=== PATIENT | female | born 1950 | race Caucasian/White ===

== ENCOUNTER 2019-11-01 06:00 | Outpatient (RCR) | payer OTHER, SELFPAY | END 2019-12-01 23:59 | disposition home or self-care (01) | LOC: MPT 06:00 | PROVIDERS: Family Provider Family Medicine; PCP Family Medicine; Referring Provider Family Medicine; Visit Provider Family Medicine | DX: S76.211D Strain of adductor muscle, fascia and tendon of right thigh, subsequent encounter (principal); X58.XXXD Exposure to other specified factors, subsequent encounter | CPT/HCPCS: 97110; 97116; 97161 ==

== ENCOUNTER 2019-12-02 06:00 | Outpatient (RCR) | payer OTHER, SELFPAY | END 2019-12-31 23:59 | disposition home or self-care (01) | LOC: MPT 06:00 | PROVIDERS: PCP Family Medicine; Referring Provider Family Medicine; Visit Provider Family Medicine | DX: S76.211D Strain of adductor muscle, fascia and tendon of right thigh, subsequent encounter (principal); X58.XXXD Exposure to other specified factors, subsequent encounter | CPT/HCPCS: 97110; 97116 ==

== ENCOUNTER 2020-01-01 06:00 | Outpatient (RCR) | payer OTHER, SELFPAY | END 2020-01-31 23:59 | disposition home or self-care (01) | LOC: MPT 06:00 | PROVIDERS: PCP Family Medicine; Referring Provider Family Medicine; Visit Provider Family Medicine | DX: S76.211D Strain of adductor muscle, fascia and tendon of right thigh, subsequent encounter (principal); X58.XXXD Exposure to other specified factors, subsequent encounter | CPT/HCPCS: 97110; 97116 ==

== ENCOUNTER → 2020-03-11 10:30 | Outpatient (BNVA) | payer OTHER, SELFPAY | PROVIDERS: PCP Family Medicine; Visit Provider Family Medicine | DX: R73.03 Prediabetes (principal); Z13.220 Encounter for screening for lipoid disorders; Z13.6 Encounter for screening for cardiovascular disorders | CPT/HCPCS: 80048; 80061; 83036 ==

== ENCOUNTER → 2020-06-17 10:33 | Outpatient (BNVA) | payer OTHER, SELFPAY | PROVIDERS: PCP Family Medicine; Visit Provider Family Medicine | DX: A05.9 Bacterial foodborne intoxication, unspecified (principal); K82.9 Disease of gallbladder, unspecified | CPT/HCPCS: 80053; 83690; 85025 ==

== ENCOUNTER → 2020-10-22 15:02 | Outpatient (BNVA) | payer OTHER, SELFPAY | PROVIDERS: PCP Family Medicine; Visit Provider Emergency Medicine | DX: J02.9 Acute pharyngitis, unspecified (principal) | CPT/HCPCS: 87070; 87880 ==

== ENCOUNTER → 2021-04-22 09:33 | Outpatient (BNVA) | payer OTHER, SELFPAY | PROVIDERS: PCP Family Medicine; Visit Provider Family Medicine | DX: E55.9 Vitamin D deficiency, unspecified (principal); Z13.6 Encounter for screening for cardiovascular disorders; R73.03 Prediabetes | CPT/HCPCS: 80053; 80061; 82652; 83036 ==

== ENCOUNTER → 2022-04-18 09:55 | Outpatient (BNVA) | payer OTHER, SELFPAY | PROVIDERS: PCP Family Medicine; Visit Provider Family Medicine | DX: E11.9 Type 2 diabetes mellitus without complications (principal); M70.61 Trochanteric bursitis, right hip; Z13.6 Encounter for screening for cardiovascular disorders | CPT/HCPCS: 73502; 80053; 80061; 83036 ==

== ENCOUNTER → 2022-10-17 10:27 | Outpatient (BNVA) | payer OTHER, SELFPAY | PROVIDERS: PCP Family Medicine; Visit Provider Family Medicine | DX: M53.3 Sacrococcygeal disorders, not elsewhere classified (principal) | CPT/HCPCS: 72100 ==

== ENCOUNTER → 2023-01-30 14:47 | Outpatient (BNVA) | payer OTHER, SELFPAY | PROVIDERS: PCP Family Medicine; Visit Provider Family Medicine | DX: M70.61 Trochanteric bursitis, right hip (principal); M17.11 Unilateral primary osteoarthritis, right knee | CPT/HCPCS: 73562 ==

== ENCOUNTER → 2023-04-06 10:13 | Outpatient (BNVA) | payer OTHER, SELFPAY | PROVIDERS: PCP Family Medicine; Visit Provider Family Medicine | DX: M17.11 Unilateral primary osteoarthritis, right knee (principal); R06.02 Shortness of breath; R73.03 Prediabetes; Z13.220 Encounter for screening for lipoid disorders; Z13.6 Encounter for screening for cardiovascular disorders | CPT/HCPCS: 71046; 80053; 80061; 83036; 85025 ==

== ENCOUNTER 2023-04-14 11:25 | Outpatient (CLI) | payer OTHER, SELFPAY ==
--- NOTE | 2023-04-14 11:45 | USCV_ITS ---
Jennifer Dupree Age: 72 Gender: F : 1950 Exam Date: 04/14/2023 11:40 Ordering Phys: Caron Farr MD Technologist: YOLANDA Exam Location: [facility] Indication: SHORTNESS OF BREATH BP: 142 / 64 HR: 41 Rhythm: Sinus Technical Quality: Suboptimal MEASUREMENTS (Male / Female) Normal Values 2D ECHO LVOT Diameter 2.0 cm LV Ejection Fraction MOD 2C 64.0 % LV Ejection Fraction 2C AL 63.3 % LA Diameter 2.9 cm LA Width 3.1 cm LA Height 5.0 cm RA Width 3.3 cm RA Height 4.7 cm Aorta at Sinotubular Diameter 2.0 cm IVC Diameter 1.6 cm M-MODE Aortic Annulus Diameter 2.7 cm LA Ao Ratio MM 0.9 MV E Point Septal Separation 0.6 cm DOPPLER AV Peak Velocity 162.0 cm/s LVOT Peak Velocity 137.0 cm/s AV Area Cont Eq vti 2.8 cm squared AV Area Cont Eq pk 2.7 cm squared MV Peak Velocity 123.0 cm/s MV Area PHT 3.0 cm squared Mitral E to A Ratio 0.8 MV E' Velocity 52.0 cm/s Mitral E to MV E' Ratio 7.0 Mitral E to LV E' Lateral Ratio 5.8 Mitral E to LV E' Septal Ratio 8.7 TR Peak Velocity 251.3 cm/s TR Peak Gradient 25.3 mmHg TR Mean Velocity 208.1 cm/s TR Mean Gradient 18.1 mmHg TR Velocity Time Integral 90.2 cm TV Peak E Velocity 68.0 cm/s Right Atrial Pressure 3.0 mmHg Pulmonary Artery Systolic Pressu 28.3 mmHg FINDINGS Left Ventricle Normal left ventricular size and systolic function, EF 69 %. No regional wall motion abnormalities. Grade I/IV diastolic dysfunction (abnormal relaxation filling pattern), normal to mildly elevated filling pressures. Right Ventricle The right ventricle is normal in size and function. Right Atrium The right atrium is normal in size. Left Atrium The left atrium is normal in size. Mitral Valve No gross abnormalities noted Aortic Valve Thickened aortic valve. Tricuspid Valve Trace tricuspid valve regurgitation. Estimated pulmonary artery peak systolic pressure 28 mmHg Pulmonic Valve No gross abnormalities noted Pericardium Normal pericardium without effusion. Aorta Normal ascending aorta dimension. IVC Normal inferior vena cava. CONCLUSIONS Normal left ventricular size and systolic function, EF 69 %. No regional wall motion abnormalities. Grade I/IV diastolic dysfunction (abnormal relaxation filling pattern), normal to mildly elevated filling pressures. Thickened aortic valve. Trace tricuspid valve regurgitation. Estimated pulmonary artery peak systolic pressure 28 mmHg. There is no pericardial effusion. There are no intracardiac masses. No similar previous studies are available for comparison Dr Viet Dias MD FAC (Electronically Signed) Final Date: 14 April 2023 20:35 S
== END 2023-04-14 11:26 | disposition home or self-care (01) ==
PROVIDERS: PCP Family Medicine; Visit Provider Family Medicine
DX: R06.02 Shortness of breath (principal); I51.89 Other ill-defined heart diseases; I35.8 Other nonrheumatic aortic valve disorders
CPT/HCPCS: 93306

== ENCOUNTER → 2023-06-21 11:35 | Outpatient (BNVA) | payer OTHER, SELFPAY | PROVIDERS: PCP Family Medicine; Referring Provider Nurse Practitioner Family; Visit Provider Internal Medicine Cardiovascular Disease | DX: R06.02 Shortness of breath (principal); Z98.61 Coronary angioplasty status; M25.561 Pain in right knee; M17.11 Unilateral primary osteoarthritis, right knee; Z96.652 Presence of left artificial knee joint; R06.09 Other forms of dyspnea; I51.89 Other ill-defined heart diseases; R00.1 Bradycardia, unspecified | CPT/HCPCS: 20610; 36415; 73560; 73565; 80048; 83880; 93005; 99204 ==

== ENCOUNTER 2023-07-05 09:05 | Outpatient (CLI) | payer OTHER, SELFPAY ==
--- NOTE | 2023-07-05 | ECG_ITS ---
[facility] Test Date: 2023-07-05 Pat Name: Jennifer Dupree Department: Room: Gender: Female Business Development Engineer: : 1950 Requested By: Viet Dias Order Number: [id number] Michael MD: Viet Dias M.D. Interpretive Statements NAME OF STUDY: EXERCISE SESTAMIBI STRESS TEST INDICATION: Shortness of Breath PROCEDURE: The baseline electrocardiogram showed sinus bradycardia with a poor R wave progression.. At the baseline, the patient's blood pressure was 150/85 mm Hg with a heart rate of 54. The patient exercised for 5 minutes and 36 seconds on a standard Addy protocol. Patient attained a maximum heart rate of 130 beats per minute(87% of the maximum predicted heart rate) with a blood pressure at the peak exercise of 197/89 mm Hg. The EKG at the peak exercise revealed no significant changes. Occasional supraventricular ectopics were noted. Patient did not have any chest pain or any significant arrhythmis with the exercise Sestamibi was injected 1 minute prior to the peak exercise During the recovery phase, there were no new changes. Blood pressure at the end of the recovery phase was 195/76 mm Hg with a heart rate of 65 per minute. CONCLUSION: 1. No significant EKG changes with the treadmill exercise 2. No exercise-induced chest pain or cardiac arrhythmia 3. Slightly impaired impaired exercise tolerance, attained a maximum of 7.0 METs 4. Sestamibi/Sestamibi perfusion results pending; see separate report. Electronically Signed On 07-14-2023 16:08:16 PRODUCT DEVELOPMENT by Viet Dias M.D. [email or web address]
[2023-07-05 09:13] VITALS: BMI 31.2
--- NOTE | 2023-07-05 09:14 | NMCV_ITS ---
NM toni perf SPECT r/s* [id number] Jennifer Dupree Age: 72 Gender: F : 1950 Exam Date: 07/05/2023 09:14 Ordering Phys: Viet Dias MD ([email or web address]) Technologist: YOUSUF Miller Exam Location: [facility] Indications: CORONARY ANGIOPLASTY STATUS STRESS TEST Please see separate stress test report in [facility] for full findings IMAGE PROTOCOL Rest/Stress 1 Exercise Day Radiopharmaceutical Dose (mCi) Administration Site Administered by Rest: Tc-99m 10.6 IV YOUSUF Miller Sestamibi Stress:Tc-99m 32.7 IV YOUSUF Dee Sestamibi Rest: 05-Jul-2023 60 Discovery 630 Stress: 05-Jul-2023 15 Discovery 630 Radiopharmaceutical was injected at 85 % maximum heart rate. Images obtained in supine and prone position. SPECT RESULTS Technical Quality: Excellent Raw Data Analysis: Normal Image Corrections: No attenuation or motion correction applied Summed Stress Score: 0 Summed Rest Score: 3 Summed Difference Score: 0 PERFUSION FINDINGS Areas of slightly decreased tracer uptake were noted in the apical region. No significant reversibility was noted FUNCTIONAL RESULTS (calculated via Gated SPECT) Stress Image LV EF (%): 77 Stress EDV (mL):65 TID: 0.85 Stress ESV (mL):15 FUNCTIONAL FINDINGS: Segmental wall might have's revealed mild hypokinesia of the LV apex. The transient ischemic dilatation ratio was 0.85. IMPRESSIONS 1. Myocardial perfusion imaging revealing small area of slightly decreased persistent tracer uptake in the apical region, suggestive of myocardial scarring versus attrition artifact. 2. Normal LV ejection fraction of 77%. 3. LV wall motion analysis revealed mild hypokinesia of the LV apex. 4. Normal LV volume No significant coronary ischemia, based on the above findings Dr Viet Dias MD [facility] (Electronically Signed) Final Date: 05 July 2023 16:28 S
[2023-07-05 11:52] VITALS: BP 195/89; PULSE 65
== END 2023-07-05 09:06 | disposition home or self-care (01) ==
LOC: CDL 09:08
PROVIDERS: PCP Family Medicine; Visit Provider Internal Medicine Cardiovascular Disease
DX: R06.02 Shortness of breath (principal); Z98.61 Coronary angioplasty status; R93.1 Abnormal findings on diagnostic imaging of heart and coronary circulation
CPT/HCPCS: 36415; 78452; 93017; A9500

== ENCOUNTER → 2023-07-19 13:36 | Outpatient (BNVA) | payer OTHER, SELFPAY | PROVIDERS: PCP Family Medicine; Visit Provider Family Medicine | DX: M25.551 Pain in right hip (principal); M17.11 Unilateral primary osteoarthritis, right knee; M23.41 Loose body in knee, right knee; M22.41 Chondromalacia patellae, right knee | CPT/HCPCS: 72100; 73502 ==

== ENCOUNTER 2023-07-20 15:35 | Outpatient (CLI) | payer OTHER, SELFPAY ==
--- NOTE | 2023-07-20 16:00 | MR_ITS ---
WS: [id number] MRI RIGHT KNEE NONCONTRAST TECHNIQUE: Axial PD, coronal PD fat sat, coronal PD, sagittal PD, and sagittal PD fat-sat images obta ined. CLINICAL INFORMATION: right knee pain, further evaluate loose body COMPARISON: None. FINDINGS: Distal quadriceps and patella tendons are intact. Hypertrophic patella. Advanced tricompartment arthr itis. Hypertrophic changes along the joint line. Tiny suprapatellar effusion. Lobulated popliteal cys t measuring 4.3 x 2.1 cm. Calcified loose body in the superior aspect of the popliteal cyst measuring 17 x 8 mm. Additional calcified loose body along the posterior lateral tibia measuring 16 x 12 mm adjacent to th e fibular head. Normal ACL and PCL. Advanced joint space narrowing medial joint compartment grade IV chondromalacia and subchondral edema. Hypertrophic change along the joint line. Chronic thinning of t he medial and lateral meniscus. Peripheral extrusion of the medial meniscus. Advanced chondromalacia patella with subchondral edema. This is worse involving the medial patellar facet. Normal medial and lateral patellar retinaculum. Normal medial and lateral collateral ligaments. IMPRESSION: 1. ACL and PCL are intact. 2. Advanced tricompartmental arthritis with grade IV chondromalacia. Subchondral edema in the medial joint compartment. 3. Chronic thinning of the medial and lateral meniscus with [id number] articulation in the medial joint compartment. 4. Calcified loose bodies in the superior aspect of the popliteal cyst and also adjacent to the post erolateral tibia and fibula head 5. Lobulated popliteal cyst measures 2.1 x 4.3 cm. 6. Grade IV chondromalacia patella with subchondral edema worse involving the lateral patellar facet . 7. Small suprapatellar effusion. Outbridge grading: grade IV: full-thickness cartilage loss with underlying bone reactive changes
== END 2023-07-20 15:36 | disposition home or self-care (01) ==
LOC: RAD 15:36
PROVIDERS: PCP Family Medicine; Visit Provider Specialist
DX: M17.11 Unilateral primary osteoarthritis, right knee (principal); M22.41 Chondromalacia patellae, right knee; M23.41 Loose body in knee, right knee; M71.21 Synovial cyst of popliteal space [Baker], right knee; M23.331 Other meniscus derangements, other medial meniscus, right knee; M23.361 Other meniscus derangements, other lateral meniscus, right knee
CPT/HCPCS: 73721

== ENCOUNTER → 2023-08-02 14:19 | Outpatient (BNVA) | payer OTHER, SELFPAY | PROVIDERS: PCP Family Medicine; Visit Provider Nurse Practitioner | DX: M17.11 Unilateral primary osteoarthritis, right knee (principal); M25.561 Pain in right knee; G89.29 Other chronic pain | CPT/HCPCS: 99214 ==

== ENCOUNTER → 2023-08-22 14:40 | Outpatient (BNVA) | payer OTHER, SELFPAY | PROVIDERS: PCP Family Medicine; Visit Provider Internal Medicine Cardiovascular Disease | DX: I51.89 Other ill-defined heart diseases (principal); R06.09 Other forms of dyspnea; R00.1 Bradycardia, unspecified | CPT/HCPCS: 99214 ==

== ENCOUNTER → 2023-09-04 10:15 | Outpatient (BNVA) | payer OTHER, SELFPAY | PROVIDERS: PCP Family Medicine; Visit Provider Nurse Practitioner | DX: M17.11 Unilateral primary osteoarthritis, right knee (principal); Z01.818 Encounter for other preprocedural examination; G89.29 Other chronic pain; M25.561 Pain in right knee | CPT/HCPCS: 36415; 73560; 73565; 80053; 81001; 85025; 99214 ==

== ENCOUNTER 2023-09-27 13:03 | Outpatient (CLI) | payer OTHER, SELFPAY ==
--- NOTE | 2023-09-27 13:30 | CT_ITS ---
WS: [id number] CT RIGHT KNEE, NONCONTRAST FAVIOLA TECHNIQUE: Noncontrast CT of the RIGHT knee to include the RIGHT hip and ankle. CLINICAL INFORMATION: Pre-operative CT COMPARISON: None. DLP: 841.[address] scans at [facility] use at least one of these dose optimization techniques: automated e xposure control; mA and/or kV adjustment per patient size (includes targeted exams where dose is matc hed to clinical indication); or iterative reconstruction. FINDINGS: Advanced tricompartment arthritis RIGHT knee worse in the medial joint compartment. Hypertrophic yeboah ges along the joint line. Hypertrophic patella. Moderate arthritis sacroiliac joints. Moderate degenerative narrowing bilateral hips. Osteopenia. Sig moid diverticulosis. Tiny suprapatellar effusion. Small lobulated popliteal cyst with calcification. Dystrophic soft tissue calcification in the popliteal fossa. Postoperative changes LEFT TKA. IMPRESSION: Images obtained for preoperative purposes.
== END 2023-09-27 13:04 | disposition home or self-care (01) ==
LOC: RAD 13:04
PROVIDERS: PCP Family Medicine; Visit Provider Nurse Practitioner
DX: M17.11 Unilateral primary osteoarthritis, right knee (principal); M16.0 Bilateral primary osteoarthritis of hip; M47.818 Spondylosis without myelopathy or radiculopathy, sacral and sacrococcygeal region
CPT/HCPCS: 73700

== ENCOUNTER → 2023-10-04 10:18 | Outpatient (BNVA) | payer SELFPAY | PROVIDERS: PCP Family Medicine; Visit Provider Family Medicine | DX: Z01.818 Encounter for other preprocedural examination (principal) | CPT/HCPCS: 80048; 81003; 85025 ==

== ENCOUNTER 2023-10-10 11:28 | Observation (INO) | payer OTHER, MEDICARE, SELFPAY ==
[2023-10-10] VITALS (15 sets, daily range): BP systolic 112–181; BP diastolic 56–89; PULSE 41–59; RESP 15–18; TEMP 36.1–37; O2SAT 92–98; BMI 31.4
[2023-10-10] MEDS: sodium chloride 0.9% 1,000 ML 30 ML IV (06:51)
[2023-10-10] MEDS: acetaminophen 1,000 MG/100 ML PIGGYBACK 400 MG IV ×3 (06:51→22:22)
--- NOTE | 2023-10-10 06:55 | P.HPUD_ITS ---
Surgery/Procedure H&P Update DATE OF PROCEDURE: October 10, 2023 DATE H&P PERFORMED: 10/04/23 H&P UPDATE INFORMATION: I have reviewed H&P completed within last 30 days, I have examined patient prior to procedure, No changes to prior documentation and H&P is in [facility] E[facility] on date indicated PLANNED PROCEDURE: Operation Date: 10/10/23 07:55 Proposed Procedures p Moreno Robot Total Knee Arthroplasty(Right) - Bushra Ellison MD Related Problem List Diagnoses (1) Primary osteoarthritis of right knee:
[2023-10-10] MEDS: ceFAZolin 2,000 MG in sodium chloride 0.9% (plus) 50 ML 100 MG IV ×3 (08:11→23:08)
--- NOTE | 2023-10-10 09:01 | ANES.PROC ---
Anesthesia Procedures Procedure/Date: 10/10/23 Nerve Block ^: Nerve Block 1: Main Anesthesia: spinal anesthesia block Time Out Performed: Yes Consent: requested by attending/covering physician, from patient and risks and benefits reviewed Nerve block location: adductor canal (right) Anesthesia monitors applied: pulse oximetry, EKG, BP cuff and oxygen Nerve block position: supine Anesthetic Used: ropivicaine 0.5% Amount of anesthesia used (mL): 20 Ultrasound used to: recognize landmarks Nerve Stimulator Used?: No Interscalene/Femoral BLK: 4 stimuplex 21 g needle used for position and inplane approach Injection: neg aspiration of heme Patient Tolerated Procedure: well Complications: none
[2023-10-10] MEDS: tranexamic acid 1,000 mg/10mL SDV 1000 MG IV (09:04)
[2023-10-10] MEDS: vancomycin 1,000 MG SDV 1000 MG XX (09:51)
[2023-10-10] MEDS: BUPivacaine 0.5% INJ 30 mL 20 ML INJECTION (10:06)
[2023-10-10] MEDS: BUPivacaine liposome 13.3 mg/mL SDV 10 mL 266 MG INFILTRATI (10:06)
[2023-10-10] MEDS: ceFAZolin 1,000 mg SDV 2000 MG IRRIGATION (10:07)
--- NOTE | 2023-10-10 11:31 | ANES.PREANE2 ---
Pre-Anesthetic Assessment Height/Weight: Height 1.63 m Weight 83.007 kg Temp Pulse Resp BP Pulse Ox O2 Del Method 97 F L 43 L 18 131/60 97 Room Air 10/10/23 11:25 10/10/23 11:25 10/10/23 11:25 10/10/23 11:25 10/10/23 11:25 10/10/23 11:25 Operation Date: 10/10/23 07:55 Proposed Procedures p Moreno Robot Total Knee Arthroplasty(Right) - Bushra Ellison MD Familial anesthetic complications: none Was Beta Bruno taken within 24 hours: Yes Was Clonidine taken within 24 hours: N/A Last intake: Intake Last Liquid Date 10/09/23 Last Liquid Time 23:00 Last Solid Date 10/09/23 Last Solid Time 19:00 Social No alcohol and No tobacco Exam alert, oriented x 3, clear to auscultation bilaterally and regular rate & rhythm Airway Submandibular: within normal limits Cervical ROM: within normal limits Mallampati: Class II Dentition: full Musc/skel Osteoarthritis/DJD Anesthetic Plan ASA status: 2 Anesthesia: Regional (specify below) (SAB with adductor blk) Medications/Allergies Home Medications Medication Instructions Recorded Confirmed Last Taken Type latanoprost (PF) 0.005 % eye drops 1 drop ophthalmic (eye) DAILY 03/11/20 10/09/23 10/09/23 History timolol 0.5 % eye drops 1 drop ophthalmic (eye) DAILY 03/11/20 10/10/23 10/10/23 History cyclosporine 0.05 % eye drops in a 1 drp ophthalmic (eye) Q12H 04/18/22 10/10/23 10/10/23 History dropperette (Restasis) Allergies Allergy/AdvReac Type Severity Reaction Status Date / Time metoclopramide [From Reglan] Allergy Mild ADR-Shakine Verified 10/09/23 11:21 ss Current Medications Generic Name Dose Route Start Last Admin Trade Name Freq PRN Reason Stop Dose Admin Sodium Chloride 1,000 mls @ 30 mls/hr 10/10/23 06:30 10/10/23 06:51 Sodium Chloride 0.9% IV 10/11/23 06:29 30 mls/hr .Q24H CHENG Administration PFSH Anesthesia Surgical History History of total left knee replacement History of knee replacement left H/O wrist surgery left side Family History Father CAD (coronary artery disease) Denies family history of Diabetes Chronic kidney disease (CKD) Anesthesia complication Cancer Hypertension Stroke Social History Second hand smoke exposure: No Alcohol intake: never Substance/Drug Use: never Female Reproductive History Spontaneous abortions: No Data Anesthesia Cardiac Studies: Echocardiogram 04/14/23 Sestamibi Stress Test (Cardiology) 07/05/23
--- NOTE | 2023-10-10 11:31 | PM.OP ---
Operative Report Date of procedure: October 10, 2023 Pre-op diagnosis: Primary osteoarthritis right knee with varus deformity and slight flexion contracture Post-op diagnosis: Primary osteoarthritis right knee with varus deformity and slight flexion contracture Post-op findings: Large osteophytes and varus deformity. Procedure done: Right total knee arthroplasty with Moreno guidance Implants: The [place] total knee system with a size 3 triathlon beaded cruciate retaining femur left, a triathlon titanium tibial component size 3 beaded, a triathlon X3 tibial bearing CS insert size 3 X 10 mm and a beaded triathlon titanium asymmetric patella size 32 x 10 mm Specimens removed/disposition: Bone, disposed of Pathology: None Surgeon: Bushra Ellison MD Outside Solar Sales Consultant: [facility] operating room technicians Anesthesia: Spinal (With MAC, ASA 2) Estimated blood loss (mL): 50 Tourniquet time (min): 0 (Not utilized) IV fluids (mL): 1,000 Urine output (mL): 250 Complications: None Findings: Severe degenerative osteoarthritis with large osteophytes and varus deformity. Complete denudement of bone from medial femoral condyle and patella Condition: stable Disposition: PACU (Then transfer to floor for postoperative rehabilitation and pain management) Brief History: This 72-year-old woman presented to the office for evaluation secondary to severe degenerative osteoarthritis of the right knee and severe pain secondary to this. She had the pain for greater than 2 years. She had findings on x-ray consistent with severe degenerative osteoarthritis. She also had conservative measures which were not successful including injection therapy of viscosupplementation as well as corticosteroids, bracing, physical therapy, activity modification, and oral anti-inflammatories. The patient had difficulties with activities of daily living and wished to proceed with operative intervention in the form of right total knee arthroplasty. Risks and complications were discussed with her in the office, and consents were signed. Procedure: The patient was brought to the operating theater, and after undergoing spinal anesthetic, with MAC and with supplemental adductor canal block, ASA 2, the right lower extremity was prepped with Dura-Prep and draped in usual fashion following placement of a tourniquet high on the leg. The leg was then draped free.? Tourniquet was not elevated during the case.? A surgical pause was performed, and at the time of the surgical pause, we confirmed the site and side of surgery. Additionally, we confirmed the appropriate and timely administration of preoperative antibiotics, Ancef 2 g.? The availability of equipment was confirmed, and the patient's identity was verbalized as well. Following the surgical pause, an incision was made centering over the patella continuing proximally and distally as necessary to allow access to the knee joint. Dissection continued through skin and soft tissues using a scalpel. Hemostasis was obtained using electrocautery. The skin incision was followed by a median parapatellar arthrotomy. The leg was extended and the patella was able to be displaced laterally.? Appropriate arrays and markers were placed in appropriate position for use of the Moreno.? Preoperative planning had been accomplished and was discussed in detail with the [facility] contracts representative.? Intraoperative mapping of the femur and tibia was accomplished after the arrays were placed.? Internal markers were also placed.? Once we had accomplished the Moreno mapping, we began the appropriate resections for placement of the prosthesis.? The plan was for a cruciate retaining right total knee arthroplasty. Once appropriate mapping had been accomplished retraction was established using manual retraction by surgical technicians and also the Moreno leg positioner and retractors.? The knee was evaluated.? There was significant osteoarthritic change as well as very minimal flexion contracture as well as varus deformity.? Appropriate bone resection was accomplished using the Moreno.? The femur was sized to a size 3.? Following femoral cuts, attention was directed to the tibia.? Osteophytes were removed prior to this portion of the procedure.? We had performed a minimal medial release at the beginning of the procedure to allow for placement of the array.? Proximal tibia was evaluated, and it was felt that appropriate size for the tibia was a size 3.? Tray was noted to fit nicely with good coverage.? Rim fit was accomplished with the size 3. A trial reduction was accomplished after osteophytes have been removed as well as the medial and lateral menisci.? We had removed the anterior cruciate ligament at the beginning of the case and preserved the posterior cruciate ligament.? Trial reduction was accomplished with a size 3 femoral cruciate retaining component, a size 3 tibial tray and a size 3 CS tibial bearing insert which was 9 mm initially which was increased to 10 mm.? Secondary to the balancing of the knee, we elected to place a 10 mm insert for the actual component. Alignment was felt to be appropriate as well.? Trial components were removed after the femur had been drilled.? Prior to removal of the tibial tray which had been pinned in position with appropriate rotation as determined by the Moreno plan, we broached the tibia.? Subsequently, the 4 drill holes were made for the prosthetic component.? All trial components were removed, and the wound was irrigated.? Plans were made for insertion of the prosthetic components.? Prior to this, the patella was manually prepared.? After resection of the articular surface with the jogging system, it was measured and measured a 32 mm patella.? We resected approximately 6 mm of patella.? Patellar height was restored with the patellar component. Once again, the wound was irrigated.? The Tritanium tibia was impacted into position.? The beaded femur was then impacted into position in a cementless fashion. The CS tibial insert was placed prior to placement of the femoral component. The patella was pressed into position with a patellar clamp.? Exparel was injected about the components deep and superficially.? The knee was then copiously irrigated with betadine and saline and suctioned dry. Attention was then directed to closure. Closure was accomplished with 0 Vicryl in the fascial tissues.? The suture line of 0 Vicryl was supplemented with strata fix, #1, with a running stitch from proximal to distal and a second running stitch from distal to proximal.? This was followed by Surgiflo and vancomycin powder.? Following this, a 2-0 Monocryl was used in the subcutaneous tissues, and the skin was closed with 3-0 Strata fix.? Care was taken to assure an excellent subcutaneous as well as skin closure.? A sterile dressing was then placed consisting of Dermabond Prineo, OpSite, ABD, sterile soft roll, and an Devin wrap including over the foot. The patient was returned the Recovery Room in a satisfactory condition. X-rays were obtained and reviewed there.? The patient will be discharged to the floor for postoperative rehabilitation and pain management. Related Problem List Diagnoses (1) Primary osteoarthritis of right knee: (2) Varus deformity, not elsewhere classified, right knee:
--- NOTE | 2023-10-10 11:35 | XRR_ITS ---
PROCEDURE INFORMATION: Exam: XR Right Knee Exam date and time: 10/10/2023 10:38 AM Age: 72 years old Clinical indication: Device placement; Joint replacement hardware; Prior surgery; Surgery date: Post-operative (0-2 days); Surgery type: RT knee; Additional info: Post op TECHNIQUE: Imaging protocol: Radiologic exam of the right knee. Views: 1 or 2 views. COMPARISON: CT knee RT [facility] [id number] 09/27/2023 1:30 PM FINDINGS: Bones/joints: Right total knee arthroplasty. No acute fracture or dislocation. Soft tissues: Soft tissue air of the right knee. XR/XR knee RT 1-2V [id number] IMPRESSION: Right total knee arthroplasty.
[2023-10-10] MEDS: chlorhexidine gluconate 0.12% Btl 473 mL 30 ML MUCOUS MEM ×3 (12:46→20:06)
[2023-10-10] MEDS: oxyCODONE 5 mg IR Tab/Cap PO ×3 (12:46→21:16)
[2023-10-10] MEDS: sennosides-docusate Tablet 2 TAB PO (17:19)
[2023-10-10] MEDS: mupirocin oint 22 gm 1 APPLIC NASAL (17:23)
[2023-10-10] MEDS: iron polysaccharide complex 150 mg Capsule PO (17:23)
[2023-10-10] MEDS: calcium carbonate 500 mg Chew Tablet 1000 MG PO (17:23)
[2023-10-10] MEDS: CELEcoxib 200 mg Capsule PO (20:06)
[2023-10-11] VITALS (8 sets, daily range): BP systolic 151–158; BP diastolic 73–76; PULSE 51–57; RESP 16–18; TEMP 36.6–36.9; O2SAT 93–94
[2023-10-11] MEDS: oxyCODONE 5 mg IR Tab/Cap PO ×3 (04:10→12:03)
[2023-10-11 05:11] LABS: Basophils # 0.1 10^3/uL (0.0-0.1); Basophils % 0.6 %; Eosinophils % 0.4 %; Hematocrit 36.4 % (36-47); Lymphocytes # 2.2 10^3/uL (0.8-4.8); Lymphocytes % 20.3 %; Mean Corpuscular HGB Conc 32.4 g/dL (30-55); Mean Corpuscular Hemoglobin 28.5 pg (27-33); Mean Corpuscular Volume 87.9 fl (85-98); Mean Platelet Volume 9.8 fL (7.4-10.4); Monocytes # 0.9 10^3/uL (0.2-0.9); Monocytes % 7.7 %; Neutrophils # 7.77 10^3/uL (1.8-7.7); Neutrophils % 70.7 %; Nucleated Red Blood Cells % 0 %; Platelet Count 305 10^3/cmm (157-399); Red Blood Count 4.14 10^6/uL (3.85-5.65); Red Cell Distribution Width 12.7 % (12.1-15.1); White Blood Count 10.99 10^3/uL (3.29-11.43)
[2023-10-11 05:30] LABS: Anion Gap 11.8 (5-19); Blood Urea Nitrogen 7 mg/dL (8-23); Calcium 8.7 mg/dL (8.5-10.5); Carbon Dioxide 26 mmol/L (22-29); Chloride 101 mmol/L (98-107); Creatinine Clr Calc Pharmacy 70.1641; Glucose 112 mg/dL (65-115); Osmolality Calculated 279 mOsm/kg (285-295); Potassium 3.8 mmol/L (3.5-5.1); Sodium 135 mmol/L (136-145)
[2023-10-11] MEDS: acetaminophen 1,000 MG/100 ML PIGGYBACK 400 MG IV (06:03)
[2023-10-11] MEDS: multivitamin therapeutic Tablet 1 TAB PO (08:20)
[2023-10-11] MEDS: cholecalciferol (vitamin D3) 1,000 unit Tablet 1000 UNIT PO (08:20)
[2023-10-11] MEDS: calcium carbonate 500 mg Chew Tablet 1000 MG PO (08:20)
[2023-10-11] MEDS: ceFAZolin 2,000 MG in sodium chloride 0.9% (plus) 50 ML 100 MG IV (08:21)
[2023-10-11] MEDS: aspirin 325 mg EC Tablet PO (08:21)
[2023-10-11] MEDS: CELEcoxib 200 mg Capsule PO (08:21)
[2023-10-11] MEDS: sennosides-docusate Tablet 2 TAB PO (08:21)
[2023-10-11] MEDS: iron polysaccharide complex 150 mg Capsule PO (08:21)
[2023-10-11] MEDS: chlorhexidine gluconate 0.12% Btl 473 mL 30 ML MUCOUS MEM (08:22)
[2023-10-11] MEDS: latanoprost 0.005% Op Soln 2.5 mL Btl 1 DROP EYE-BOTH (08:25)
[2023-10-11] MEDS: timolol 0.5% Op Soln 5 mL Btl 1 DROP EYEAFF (08:27)
[2023-10-11] MEDS: mupirocin oint 22 gm 1 APPLIC NASAL (08:27)
[2023-10-11] MEDS: ondansetron 2 mg/ML SDV 2 mL 4 MG IVP (09:13)
--- NOTE | 2023-10-11 13:20 | P.DS_ITS ---
Discharge Providers Date of Admission: 10/10/23 11:28 Date of Discharge: October 11, 2023 Attending Provider at Admission: Bushra Ellison MD Attending Provider at Discharge: Bushra Ellison MD Primary Care Provider: Caron Farr MD Diagnoses at Discharge Discharge Diagnosis (1) Primary osteoarthritis of right knee: Status: Chronic (2) Varus deformity, not elsewhere classified, right knee: Status: Acute (3) Status post total right knee replacement not using cement: Status: Acute Permanent problem details: Date of procedure: October 10, 2023 Diagnosis: Primary osteoarthritis right knee with varus deformity and slight flexion contracture Procedure done: Right total knee arthroplasty with [place] guidance Implants: [employer] total knee system with a size 3 triathlon beaded cruciate retaining femur left, a triathlon titanium tibial component size 3 beaded, a triathlon X3 tibial bearing CS insert size 3 X 10 mm and a beaded triathlon titanium asymmetric patella size 32 x 10 mm Reason for Visit Reason for Visit: M17.11 Brief History: This 72-year-old woman presented to the office for evaluation secondary to severe degenerative osteoarthritis of the right knee and severe pain secondary to this. She had the pain for greater than 2 years. She had findings on x-ray consistent with severe degenerative osteoarthritis. She also had conservative measures which were not successful including injection therapy of viscosupplementation as well as corticosteroids, bracing, physical therapy, activity modification, and oral anti-inflammatories. The patient had difficulties with activities of daily living and wished to proceed with operative intervention in the form of right total knee arthroplasty. Risks and complications were discussed with her in the office, and consents were signed. Hospital Course Hospital Course Patient was admitted under observation status following same-day surgery for right total knee arthroplasty. Patient did well following the surgical procedure. She was able to be up in her room the next day and was felt independent and safe for discharge to home. Dressings were dry. Her large outer dressing was removed, and there was no evidence of DVT. She was neurologically intact. She felt comfortable as well going home, therefore she was discharged to home. Physical Exam Const: COMMON NORMALS: no acute distress, average body habitus, patient oriented x3 and alert GENERAL APPEARANCE: cooperative and comfortable ORIENTATION/CONSCIOUSNESS: Yes awake HENMT: COMMON NORMALS: normocephalic and atraumatic HEAD & SCALP: normocephalic and atraumatic Eye: GENERAL EYE: appearance normal, both eyes and all related structures Chest: COMMONS NORMALS: normal inspection of the chest Resp: COMMON NORMALS: normal respiratory effort EFFORT & INSPECTION: Yes able to speak in complete sentences and Yes symmetric chest movement Extremity: RIGHT LOWER EXTREMITY: Yes knee joint (Large outer dressing removed) Right knee: Yes inspection (Minimal to no ecchymosis), Yes palpation (Minimal tenderness), Yes ROM (Not evaluated) and Yes neurovascular exam (Intact distally with no evidence of DVT) Neuro: COMMON NORMALS: patient oriented x3 SENSORIUM/ORIENTATION: Yes alert Psych: COMMON NORMALS: mental status grossly normal APPEARANCE: Yes grossly normal ATTITUDE: Yes calm and Yes engaged ATTENTION/CONCENTRATION: Yes at tention grossly intact Skin: COMMON NORMALS: no rashes or lesions noted GENERAL SKIN EXAM: no rashes or lesions noted Urinary Catheter Management: Reynolds: Cath Placed During This Visit: yes Urinary Catheter Date of Insertion: 10/10/23 Urinary Catheter Time of Insertion: 08:40 Discharge Data Studies Completed and Pending Completed Studies During Hospitalization Category Date Time Status XR knee RT 1-2V 80729 Routine Exams 10/10/23 11:35 Completed Radiology Impressions Knee X-Ray 10/10/23 11:35 IMPRESSION: Right total knee arthroplasty. Laboratory Results WBC 10.99 10^3/uL (3.29-11.43) 10/11/23 04:45 RBC 4.14 10^6/uL (3.85-5.65) 10/11/23 04:45 Hgb 11.80 g/dL (11.27-16.99) 10/11/23 04:45 Hct 36.4 % (36-47) 10/11/23 04:45 MCV 87.9 fl (85-98) 10/11/23 04:45 MCH 28.5 pg (27-33) 10/11/23 04:45 MCHC 32.4 g/dL (30-55) 10/11/23 04:45 RDW 12.7 % (12.1-15.1) 10/11/23 04:45 Plt Count 305 10^3/cmm (157-399) 10/11/23 04:45 MPV 9.8 fL (7.4-10.4) 10/11/23 04:45 Neut % (Auto) 70.7 % 10/11/23 04:45 Lymph % (Auto) 20.3 % 10/11/23 04:45 Nobles % (Auto) 7.7 % 10/11/23 04:45 Eos % (Auto) 0.4 % 10/11/23 04:45 Baso % (Auto) 0.6 % 10/11/23 04:45 Neut # (Auto) 7.77 10^3/uL (1.8-7.7) H 10/11/23 04:45 Lymph # (Auto) 2.2 10^3/uL (0.8-4.8) 10/11/23 04:45 Nobles # (Auto) 0.9 10^3/uL (0.2-0.9) 10/11/23 04:45 Eos # (Auto) 0.0 10^3/uL (0.0-0.8) 10/11/23 04:45 Baso # (Auto) 0.1 10^3/uL (0.0-0.1) 10/11/23 04:45 Nucleated RBC % (auto) 0 % 10/11/23 04:45 Nucleated RBCs # 0.0 /100WBC 10/11/23 04:45 Sodium 135 mmol/L (136-145) L 10/11/23 04:45 Potassium 3.8 mmol/L (3.5-5.1) 10/11/23 04:45 Chloride 101 mmol/L (98-107) 10/11/23 04:45 Carbon Dioxide 26 mmol/L (22-29) 10/11/23 04:45 Anion Gap 11.8 (5-19) 10/11/23 04:45 BUN 7 mg/dL (8-23) L 10/11/23 04:45 Creatinine 0.6 mg/dL (0.5-0.9) 10/11/23 04:45 GFR Calculation Not Reportable 10/11/23 04:45 Glucose 112 mg/dL (65-115) 10/11/23 04:45 Calculated Osmolality 279 mOsm/kg (285-295) L 10/11/23 04:45 Calcium 8.7 mg/dL (8.5-10.5) 10/11/23 04:45 Vitals Last Vital Signs Temp 97.9 F 10/11/23 11:13 Pulse 51 L 10/11/23 11:13 Resp 18 10/11/23 12:03 BP 151/75 10/11/23 11:13 Pulse Ox 93 10/11/23 11:13 O2 Del Method Room Air 10/11/23 11:13 Discharge Plan Discharge Patient Disposition: Home Health Service Condition: Stable Prescriptions: New celecoxib 200 mg Capsule 200 mg PO 1XD 30 Days Qty: 30 0RF acetaminophen 500 mg Tablet 1,000 mg PO Q8H 15 Days Qty: 0 0RF aspirin 325 mg Tablet,Delayed Release (Dr/Ec) 325 mg PO DAILY 30 Days Qty: 0 0RF oxycodone 5 mg Tablet 5 - 10 mg PO Q4H PRN (Reason: Moderate Pain) 7 Days Qty: 40 0RF Continued timolol 0.5 % drops 1 drop ophthalmic (eye) DAILY Rx Instructions: 1 drop in morning in right eye only latanoprost (PF) 0.005 % drops 1 drop ophthalmic (eye) DAILY Rx Instructions: 1 drop each eye at bedtime cyclosporine [Restasis] 0.05 % dropperette 1 drp ophthalmic (eye) Q12H Discharge Orders: Discharge Order (Routine); Ordered 10/11/23 Ordered By: Bushra Ellison Referrals: [facility] ([facility] [Outside] Bushra Ellison MD [Physician] - 10/23/23 3:45 pm Discharge Diet: Advance as tolerated Discharge Activity: Limit activity as instructed, Use walker/crutches as instructed and As per PT/OT instructions Patient Instructions: Celecoxib (By mouth), Total Knee Replacement (DC), Opioid Safety Activity Restrictions/Additional Instructions: Weight-bear as tolerated. Maintain current dressing, and you may shower. Physical therapy to instruct in ambulation, gait training, and strengthening. You may shower but do not submerge your knee in water. Range of motion as tolerated. Discharge Attestations Time Spent in Discharge Care*: greater than 30 min Specific Discharge Activities: educating patient, documenting/other paperwork and evaluating patient/reviewing data Quality Metrics Clinical Quality Measures [ No reported AMI, CVA or VTE this stay] Coding Level of Care Code Acute Code for [facility] Diagnoses Primary osteoarthritis of right knee M17.11 Varus deformity, not elsewhere classified, right knee M21.161 Status post total right knee replacement not using cement Z96.650
--- NOTE | 2023-10-11 13:53 | PC.NURSE ---
Discharge instructions provided to pt and her . No questions or concerns at this time.
--- NOTE | 2023-10-11 14:28 | PC.NURSE ---
Pt here to take her home. To private vehicle via wheelchair with all belongings.
== END 2023-10-11 14:29 | disposition home health service (06) ==
LOC: MEDSURG 11:29
PROVIDERS: Admitting Provider Specialist; PCP Family Medicine; Visit Provider Specialist
PROC: 8E0Y0CZ Robotic Assisted Procedure of Lower Extremity, Open Approach (ICD-10-PCS; CPT 27447; principal; 2023-10-10 07:55)
DX: M17.11 Unilateral primary osteoarthritis, right knee (principal); M21.161 Varus deformity, not elsewhere classified, right knee; M24.561 Contracture, right knee
CPT/HCPCS: 20985; 27447; 36415; 51702; 73560; 80048; 85025; 97110; 97116; 97161; 97165; 97530; C1776; C9290; G0378; J0131; J0690; J2250; J2405; J2704; J2795; J3010; J3370; J3490; J7030

== ENCOUNTER → 2023-10-23 15:43 | Outpatient (BNVA) | payer OTHER, MEDICARE, SELFPAY | PROVIDERS: PCP Family Medicine; Visit Provider Specialist | DX: Z96.651 Presence of right artificial knee joint (principal); M17.11 Unilateral primary osteoarthritis, right knee | CPT/HCPCS: 73560; 73565; 99024 ==

== ENCOUNTER 2023-10-31 06:00 | Outpatient (RCR) | payer OTHER, MEDICARE, SELFPAY | END 2023-10-31 23:59 | disposition home or self-care (01) | LOC: MPT 06:00 | PROVIDERS: Visit Provider Specialist | DX: Z47.1 Aftercare following joint replacement surgery (principal); Z96.651 Presence of right artificial knee joint | CPT/HCPCS: 97110; 97161 ==

== ENCOUNTER 2023-11-01 06:00 | Outpatient (RCR) | payer OTHER, SELFPAY | END 2023-12-01 23:59 | disposition home or self-care (01) | LOC: MPT 06:00 | PROVIDERS: Visit Provider Specialist | DX: Z47.1 Aftercare following joint replacement surgery (principal); Z96.651 Presence of right artificial knee joint | CPT/HCPCS: 97110; 97116; 97530 ==

== ENCOUNTER 2023-12-02 06:00 | Outpatient (RCR) | payer OTHER, SELFPAY | END 2023-12-26 23:59 | disposition home or self-care (01) | LOC: MPT 06:00 | PROVIDERS: Visit Provider Specialist | DX: Z47.1 Aftercare following joint replacement surgery (principal); Z96.651 Presence of right artificial knee joint | CPT/HCPCS: 97110; 97112; 97530 ==

== ENCOUNTER → 2023-12-13 10:11 | Outpatient (BNVA) | payer OTHER, SELFPAY | PROVIDERS: Visit Provider Specialist | DX: Z96.651 Presence of right artificial knee joint (principal) | CPT/HCPCS: 73560; 73565; 99024 ==

== ENCOUNTER → 2024-02-15 09:46 | Outpatient (BNVA) | payer OTHER, SELFPAY | PROVIDERS: Visit Provider Nurse Practitioner Family | DX: I51.89 Other ill-defined heart diseases (principal) | CPT/HCPCS: 99213 ==

== ENCOUNTER → 2024-02-19 10:49 | Outpatient (BNVA) | payer OTHER, SELFPAY | PROVIDERS: PCP Family Medicine; Visit Provider Specialist | DX: Z96.651 Presence of right artificial knee joint (principal) | CPT/HCPCS: 73560; 73565; 99213 ==

== ENCOUNTER → 2024-03-18 13:36 | Outpatient (BNVA) | payer OTHER, SELFPAY | PROVIDERS: PCP Family Medicine; Visit Provider Family Medicine | DX: I50.32 Chronic diastolic (congestive) heart failure (principal); R73.03 Prediabetes | CPT/HCPCS: 80053; 80061 ==

== ENCOUNTER → 2024-09-25 14:58 | Outpatient (BNVA) | payer OTHER, SELFPAY | PROVIDERS: PCP Family Medicine; Visit Provider Internal Medicine Cardiovascular Disease | DX: I51.89 Other ill-defined heart diseases (principal); R06.09 Other forms of dyspnea; R00.1 Bradycardia, unspecified | CPT/HCPCS: 99213 ==

== ENCOUNTER → 2024-10-14 10:28 | Outpatient (BNVA) | payer OTHER, SELFPAY | PROVIDERS: PCP Family Medicine; Visit Provider Specialist | DX: M17.12 Unilateral primary osteoarthritis, left knee (principal); Z96.651 Presence of right artificial knee joint | CPT/HCPCS: 73560; 73565; 99214 ==

== ENCOUNTER 2025-01-21 10:19 | Outpatient (CLI) | payer OTHER, SELFPAY ==
--- NOTE | 2025-01-21 10:29 | XRR_ITS ---
PROCEDURE INFORMATION: Exam: XR Right Elbow Exam date and time: 01/21/2025 11:03 AM Age: 74 years old Clinical indication: Injury or trauma; Sprain or strain; Right; Injury date: 1 month ago; Injury details: Lifting heavy object and pulled elbow twice, x1 month; Additional info: M77.8 - other enthesopathies, not elsewhere classified TECHNIQUE: Imaging protocol: Radiologic exam of the right elbow. Views: 3 or more views. COMPARISON: No relevant prior studies available. FINDINGS: Bones/joints: Bone mineralization is within normal limits. Bony spurring is present along the periphery of the medial and lateral epicondyle, more in keeping with arthritic change and bony spurring at the origin of the common extensor and common flexor tendons. Area of bony spurring is present along the lateral margin of the head of the radius. This more has the appearance of arthritic change. Subacute fracture is considered but less likely. Mild degenerative changes are present at the ulnohumeral joint. No suspicious bone lesion. No large joint effusion. Soft tissues: Overlying soft tissues appear unremarkable. No opaque foreign body. XR/XR elbow RT min 3V* [id number] IMPRESSION: Arthritic changes are present as described. Area of minimal cortical step-off and bony spurring along the lateral margin of the head of the radius more has the appearance of arthritic change. Subacute or healed fracture could be considered but is less likely. There is otherwise no acute fracture or malalignment. No joint effusion. No opaque foreign body.
== END 2025-01-21 10:20 | disposition home or self-care (01) ==
PROVIDERS: PCP Family Medicine; Visit Provider Family Medicine
DX: M77.8 Other enthesopathies, not elsewhere classified (principal); M13.821 Other specified arthritis, right elbow; M77.01 Medial epicondylitis, right elbow; M77.11 Lateral epicondylitis, right elbow
CPT/HCPCS: 73080

== ENCOUNTER → 2025-02-17 13:01 | Outpatient (BNVA) | payer OTHER, SELFPAY | PROVIDERS: PCP Family Medicine; Visit Provider Nurse Practitioner | DX: M77.11 Lateral epicondylitis, right elbow (principal); M19.021 Primary osteoarthritis, right elbow; Z46.89 Encounter for fitting and adjustment of other specified devices | CPT/HCPCS: 73080; 99214 ==

== ENCOUNTER → 2025-02-19 09:51 | Outpatient (BNVA) | payer OTHER, SELFPAY | PROVIDERS: PCP Family Medicine; Visit Provider Family Medicine | DX: Z13.6 Encounter for screening for cardiovascular disorders (principal); Z13.220 Encounter for screening for lipoid disorders; I50.32 Chronic diastolic (congestive) heart failure; R73.03 Prediabetes | CPT/HCPCS: 80048; 80061; 83036 ==

== ENCOUNTER 2025-03-03 06:30 | Outpatient (RCR) | payer OTHER, SELFPAY | END 2025-04-01 23:59 | disposition home or self-care (01) | LOC: MPT 06:30 | PROVIDERS: Visit Provider Nurse Practitioner Family | DX: M54.50 Low back pain, unspecified (principal) | CPT/HCPCS: 97110; 97162 ==

== ENCOUNTER → 2025-04-16 11:18 | Outpatient (BNVA) | payer OTHER, SELFPAY | PROVIDERS: Visit Provider Nurse Practitioner | DX: M25.551 Pain in right hip (principal); M16.0 Bilateral primary osteoarthritis of hip | CPT/HCPCS: 73502 ==

== ENCOUNTER 2025-05-01 10:55 | Outpatient (RCR) | payer OTHER, SELFPAY | END 2025-05-02 23:59 | disposition home or self-care (01) | LOC: MPT 10:55 | PROVIDERS: Visit Provider Nurse Practitioner Family | DX: M54.50 Low back pain, unspecified (principal) | CPT/HCPCS: 97110 ==

== ENCOUNTER → 2025-05-05 16:00 | Outpatient (BNVA) | payer OTHER, SELFPAY | PROVIDERS: PCP Family Medicine; Visit Provider Nurse Practitioner | DX: R05.9 Cough, unspecified (principal); R07.1 Chest pain on breathing | CPT/HCPCS: 71046 ==

== ENCOUNTER 2025-05-22 10:55 | Outpatient (RCR) | payer OTHER, SELFPAY | END 2025-06-01 23:59 | disposition home or self-care (01) | LOC: MPT 10:55 | PROVIDERS: PCP Family Medicine; Visit Provider Nurse Practitioner Family | DX: M54.50 Low back pain, unspecified (principal) | CPT/HCPCS: 97110 ==

== ENCOUNTER 2025-05-27 11:59 | Outpatient (RCR) | payer OTHER, SELFPAY | END 2025-06-01 23:59 | disposition home or self-care (01) | LOC: MPT 11:59 | PROVIDERS: PCP Family Medicine; Visit Provider Nurse Practitioner | DX: M19.021 Primary osteoarthritis, right elbow (principal); M77.11 Lateral epicondylitis, right elbow | CPT/HCPCS: 97110; 97161 ==

== ENCOUNTER 2025-06-23 12:25 | Outpatient (RCR) | payer OTHER, SELFPAY | END 2025-07-02 23:59 | disposition home or self-care (01) | LOC: MPT 12:25 | PROVIDERS: PCP Family Medicine; Visit Provider Nurse Practitioner | DX: M19.021 Primary osteoarthritis, right elbow (principal); M77.11 Lateral epicondylitis, right elbow | CPT/HCPCS: 97110; 97140 ==